=== PATIENT | female | born 1985 | race Caucasian/White ===

== ENCOUNTER 2018-01-09 04:55 | Emergency (ER) | payer OTHER ==
[~2018-01-09] VITALS: Ht 157.5 cm; Wt 59.1 kg
[2018-01-09 04:58] VITALS: BP 149/36
--- NOTE | 2018-01-09 05:06 | NUR ---
AMBULATED TO BED 3. GAVE REPORT TO HARSHIL RN
--- NOTE | 2018-01-09 05:16 | NUR ---
32 YO F PATIENT PRESENTS TO ED WITH C/O EPIGASTRIC ABD PAIN THAT RADIATES TO MID BACK X1.5 HRS . PT STATES PAIN WOKE PT FROM SLEEP. PT STATES NASEUA. PT HAD 12/13/17, DENIES N/V/D; SKIN IS PINK/WARM/DRY; AAOX4 WITH EVEN AND STEADY GAIT; LUNGS CLEAR BL; HR EVEN AND REGULAR; PT DENIES ANY FEVER, CP, SOB, OR COUGH AT THIS TIME; PATIENT STATES PAIN OF 10/10 AT THIS TIME; VSS; PATIENT POSITIONED FOR COMFORT; HOB ELEVATED; BEDRAILS UP X2; BED DOWN. ER MD MADE AWARE OF PT STATUS. WILL CONTINUE TO MONITOR.
[2018-01-09] MEDS ORDERED: MORPHINE SULFATE 4 MG/ML SYR ONE (05:57)
--- NOTE | 2018-01-09 05:58 | NUR ---
PT MEDICATED TITH 4 MG MORPHINE VIA SLOW IVP, MIXED IN 9 CC NS, PER DR RESENDEZ.
[2018-01-09 06:17] LABS: APPEARANCE,URINE CLOUDY (CLEAR); BILIRUBIN,URINE NEGATIVE (NEGATIVE); BLOOD, URINE 3+ (NEGATIVE); COLOR,URINE YELLOW (YELLOW); LEUKOCYTE ESTERASE ,URINE TRACE (NEGATIVE); NITRITE, URINE NEGATIVE (NEGATIVE); PH,URINE 5.5 (5.0-9.0); UGLUCOSE NEGATIVE (NEGATIVE)
[2018-01-09 06:17] LABS: BASOPHILS % (AUTO) 0.5 % (0.0-2.0); EOSINOPHILS # (AUTO) 0.1 K/uL (0-0.4); EOSINOPHILS % (AUTO) 0.9 % (0.0-4.0); HEMATOCRIT 33.2 % (36-48); HEMOGLOBIN 10.1 g/dL (12.0-16.0); LYMPHOCYTES # (AUTO) 1.5 K/uL (2.5-16.5); LYMPHOCYTES % (AUTO) 15.1 % (20.5-51.1); MEAN CORPUSCULAR HEMOGLOBIN 23 pg (27-31); MEAN CORPUSCULAR HGB CONC 30 g/dL (33-37); MEAN CORPUSCULAR VOLUME 75.2 fL (80-94); MONOCYTES # (AUTO) 0.5 K/uL (0.8-1.0); NEUTROPHILS # (AUTO) 7.6 K/uL (1.8-7.7); NEUTROPHILS % (AUTO) 78.5 % (42.2-75.2); PLATELET COUNT (AUTO) 233 K/uL (140-450); RED BLOOD CELL COUNT(AUTO) 4.41 MIL/uL (4.20-5.40); RED CELL DISTRIBUTION WIDTH 27.9 % (11.6-13.7); WHITE BLOOD COUNT (AUTO) 9.7 K/uL (4.8-10.8)
--- NOTE | 2018-01-09 06:18 | NUR ---
PT FAMILY AT BEDSIDE. PT IN NO APPARENT DISTRESS. WILL CONTINUE TO MONITOR
--- NOTE | 2018-01-09 06:20 | NUR ---
ULTRASOUND AT BEDSIDE.
[2018-01-09 06:29] LABS: ANION GAP 13.1 (8-16); CARBON DIOXIDE 25.6 mmol/L (21-32); CREATININE 0.8 mg/dL (0.6-1.3); POTASSIUM 3.7 mmol/L (3.5-5.1)
[2018-01-09 06:34] LABS: RBC,URINE 20-50 /HPF (0-5)
[2018-01-09 06:35] LABS: WBC,URINE 0-5 (RARE) /HPF (0-5)
[2018-01-09 06:35] LABS: ALBUMIN 3.3 g/dL (3.4-5.0); CHOL/HDL RATIO 5.6 (1-4.5); TOTAL BILIRUBIN 0.6 mg/dL (0.0-1.0)
[2018-01-09] MEDS ORDERED: MORPHINE SULFATE 4 MG/ML SYR IVP ONE ×2 (06:55→08:35)
[2018-01-09] MEDS ORDERED: NACL 0.9% 1,000 ML IV ONE (07:00)
--- NOTE | 2018-01-09 07:05 | NUR ---
PT AWAKE ALERT HOLDING FULL CONVERSATION ON CELL PHONE---NO JESSICA NO VIKI- AT BEDSIDE----PT DENIES ALLERGY TO MEDS
--- NOTE | 2018-01-09 07:05 | NUR ---
REPORT GIVEN TO NASRIN DANG FOR CONTINUITY OF CARE
[2018-01-09] MEDS ORDERED: cefTRIAXone 1,000 MG VIAL ONE (07:07)
--- NOTE | 2018-01-09 08:36 | NUR ---
PT WILL BE TRANSFERRED TO [facility] ROOM [address] CARE OF DR. ABREU. WILL HAVE NURSE CALL [phone], NURSES [facility] [address] [facility], TO GIVE REPORT ON PT.
[2018-01-09] MEDS ORDERED: metroNIDAZOLE 500 MG/NS PREMIX 100 ML IV ONE (08:40)
--- NOTE | 2018-01-09 08:56 | NUR ---
PT'S PAIN LEVEL INCREASED TO 03/24 ---MEDICATED WRITTEN--- CURRENT PAIN UNDER TOLERABLE LEVEL OF 11/22 FAMILY REMAIN AT BEDSIDE
--- NOTE | 2018-01-09 09:18 | NUR ---
REPORT GIVEN TO DANE RN 3W RM 302-B [phone] [facility]
--- NOTE | 2018-01-09 11:11 | NUR ---
Patient to be transferred to [facility] 3w. Is being transferred due to . Receiving facility has accepting physician and available space. ER physician has signed transfer form. Patient or responsible constitution party has agreed to transfer and signed form. Patient belongings inventoried and will be sent with patient. Copy of nursing notes, lab reports, EKG, Physicians Orders and X-rays to be sent with patient. Report called to at receiving facility. ambulance service has been called for transfer. ETA is [f now].
[2018-01-09 11:12] VITALS: BP 118/68
== END 2018-01-09 11:08 | disposition short-term general hospital (02) ==
LOC: MED 04:55
DX: K81.0 Acute cholecystitis (principal); N39.0 Urinary tract infection, site not specified
CPT/HCPCS: 36415; 76705; 80053; 80061; 81001; 81025; 85025; 96361; 96365; 96367; 96375; 99285; J0696; J2270; J3490; J7030; Q0092